=== PATIENT | female | born 1990 | race African-American/Black ===

== ENCOUNTER 2021-07-04 02:29 | Inpatient (IN) | payer SELFPAY ==
[~2021-07-04] VITALS: Ht 167.6 cm; Wt 96.6 kg
[2021-07-04 03:54] LABS: BASOPHILS % 0.6 % (0.0-2.0); EOSINOPHILS % 0.1 % (0.0-5.0); HEMATOCRIT. 42.4 % (36.0-48.0); HEMOGLOBIN. 13.6 g/dL (12.0-16.0); LYMPHOCYTES % 21.8 % (20.0-50.0); MEAN CORPUSCULAR HEMOGLOBIN 27.7 pg (28.0-32.0); MEAN CORPUSCULAR VOLUME 86.7 fL (81.0-99.0); MEAN PLATELET VOLUME 7.9 fl (7.4-10.4); MONOCYTES % 9.9 % (2.0-8.0); NEUTROPHILS % 67.6 % (40.0-76.0); PLATELET 428 x1000/uL (130-400); RED BLOOD CELL COUNT 4.89 mill/uL (4.2-5.4); RED CELL DISTRIBUTION WIDTH 14.2 % (11.6-14.6)
[2021-07-04 03:58] LABS: CHLORIDE 102 mEq/L (98-107)
[2021-07-04] MEDS ORDERED: LORAZEPAM 0.5MG TABLET PO ONE (04:00)
[2021-07-04] MEDS ORDERED: SODIUM CHLORIDE 0.9% 1,000 ML IV ONE (04:00)
[2021-07-04 04:03] LABS: ETHANOL BLOOD < 10 mg/dL
[2021-07-04 05:50] LABS: CLARITY URINE CLEAR (CLEAR); COLOR URINE YELLOW (YELLOW); KETONES URINE 4+ (NEGATIVE); LEUKOCYTE ESTERASE URINE NEGATIVE (NEGATIVE); NITRITE URINE NEGATIVE (NEGATIVE); OCCULT BLOOD URINE 1+ (NEGATIVE); PH URINE 5.5 (4.5-8.0); PROTEIN URINE TRACE (NEGATIVE); SPECIFIC GRAVITY URINE 1.028 (1.005-1.030)
[2021-07-04 06:38] LABS: *AMPHETAMINES SCREEN URINE NEGATIVE (NEGATIVE)
[2021-07-04 06:39] LABS: *BARBITURATES SCREEN URINE NEGATIVE (NEGATIVE); *BENZODIAZEPINES SCREEN URINE NEGATIVE (NEGATIVE); *COCAINE SCREEN URINE NEGATIVE (NEGATIVE); METHADONE URINE SCREEN NEGATIVE (NEGATIVE); OPIATES URINE SCREEN NEGATIVE (NEGATIVE); PHENCYCLIDINE URINE SCREEN NEGATIVE (NEGATIVE)
[2021-07-04 06:53] LABS: CANNABINOID URINE SCREEN PRESUMTIVE POSITIVE (NEGATIVE)
[2021-07-04] MEDS ORDERED: LACTATED RINGERS 1,000 ML IV SCH (08:45)
[2021-07-04] MEDS ORDERED: ACYCLOVIR INJ 750 MG in DEXT 5% WATER 125 ML IV SCH (10:45)
[2021-07-04] MEDS ORDERED: CEFTRIAXONE 2 G PREMIX 50 ML IV ONE (11:00)
[2021-07-04] MEDS ORDERED: AMPICILLIN 2000MG in SODIUM CHLORIDE 0.9% 100ML IV ONE (11:00)
[2021-07-04] MEDS ORDERED: AMPICILLIN 30MG/ML SYR IV ONE (11:00)
[2021-07-04] MEDS ORDERED: VANCOMYCIN 750 MG PREMIX 150 ML IV SCH (11:00)
[2021-07-04] MEDS ORDERED: VANCOMYCIN 1250MG in DEXTROSE 5% WATER 250ML IV ONE (11:15)
[2021-07-04 11:26] LABS: PARTIAL THROMBOPLASTIN TIME 25.8 sec (23.4-31.0); PROTHROMBIN TIME 11.2 sec (9.6-11.0)
[2021-07-04] MEDS ORDERED: LORAZEPAM 2MG/ML CPJ IM ONE (13:00)
[2021-07-04] MEDS ORDERED: HALOPERIDOL LACTATE 5MG/ML VIAL IM ONE (13:00)
[2021-07-04] MEDS ORDERED: LIDOCAINE HCL 1% 20ML VIAL (Pyxis) INJ ONE (14:19)
[2021-07-04] MEDS ORDERED: ACETAMINOPHEN 325MG TABLET PO PRN (15:45)
[2021-07-04] MEDS ORDERED: KETOROLAC 30MG/ML VIAL IV PRN (15:45)
[2021-07-04] MEDS ORDERED: CLONIDINE 0.1MG TABLET PO PRN (15:45)
[2021-07-04] MEDS ORDERED: GUAIFENESIN 200MG/10ML SUGAR FREE UDC PO PRN (15:45)
[2021-07-04] MEDS ORDERED: IPRATROPIUM/ALBUTEROL 0.5-3(2.5)MG/3ML NEB NEB PRN (15:45)
[2021-07-04] MEDS ORDERED: MAGNESIUM/ALUMINUM HYDROXIDE/SIMETHICONE 30ML UDC PO PRN (15:45)
[2021-07-04] MEDS ORDERED: ONDANSETRON HCL 4MG/2ML INJ IV PRN (15:45)
[2021-07-04 16:10] LABS: GLUCOSE CSF 61 mg/dL (41-75)
[2021-07-04 16:25] LABS: FOLIC ACID (FOLATE) SERUM 18.1 ng/mL (>5.38)
[2021-07-04] MEDS ORDERED: ENOXAPARIN 40MG/0.4ML SYR SUBCUT SCH (17:00)
[2021-07-04] MEDS: ACYCLOVIR INJ 550 MG in DEXT 5% WATER 100 ML IV SCH ×2 (17:30→19:00)
[2021-07-04] MEDS: SODIUM CHLORIDE 0.9% 1,000 ML IV SCH (18:25)
[2021-07-04 23:00] VITALS: BP 139/74
[2021-07-05] MEDS ORDERED: QUET200T PO (00:14)
[2021-07-05] MEDS: SODIUM CHLORIDE 0.9% 1,000 ML IV SCH ×3 (01:06→21:09)
[2021-07-05 01:24] LABS: CREATINE KINASE MB FRACTION 8.4 ng/mL (0.5-3.6)
[2021-07-05 01:33] LABS: CREATINE KINASE 3221 IU/L (26-192)
[2021-07-05] MEDS: ACYCLOVIR INJ 550 MG in DEXT 5% WATER 100 ML IV SCH ×3 (02:38→18:01)
[2021-07-05] MEDS: ACETAMINOPHEN 325MG TABLET PO PRN ×2 (02:39→21:09)
[2021-07-05 04:00] VITALS: BP 149/74
[2021-07-05 06:52] LABS: BASOPHILS % 0.5 % (0.0-2.0); EOSINOPHILS % 1.3 % (0.0-5.0); HEMATOCRIT. 39.3 % (36.0-48.0); HEMOGLOBIN. 12.9 g/dL (12.0-16.0); LYMPHOCYTES % 24.8 % (20.0-50.0); MEAN CORPUSCULAR HEMOGLOBIN 28.7 pg (28.0-32.0); MEAN CORPUSCULAR VOLUME 87.2 fL (81.0-99.0); MEAN PLATELET VOLUME 8.5 fl (7.4-10.4); MONOCYTES % 10.7 % (2.0-8.0); NEUTROPHILS % 62.7 % (40.0-76.0); PLATELET 380 x1000/uL (130-400); RED CELL DISTRIBUTION WIDTH 14.2 % (11.6-14.6)
[2021-07-05 07:46] LABS: CHLORIDE 106 mEq/L (98-107)
[2021-07-05 08:00] VITALS: BP 93/60
[2021-07-05 08:06] LABS: PHOSPHORUS 3.2 mg/dL (2.5-4.9)
[2021-07-05 08:13] LABS: CREATINE KINASE MB FRACTION 7.8 ng/mL (0.5-3.6)
[2021-07-05 08:18] LABS: CREATINE KINASE 3268 IU/L (26-192)
[2021-07-05 12:00] VITALS: BP 128/76
[2021-07-05 16:00] VITALS: BP 135/80
[2021-07-05] MEDS: ENOXAPARIN 30MG/0.3ML SYR SUBCUT SCH (17:27)
[2021-07-05 20:00] VITALS: BP 118/82
[2021-07-06 00:04] VITALS: BP 134/59
[2021-07-06] MEDS: ACYCLOVIR INJ 550 MG in DEXT 5% WATER 100 ML IV SCH (02:15)
[2021-07-06 04:00] VITALS: BP 120/72
[2021-07-06] MEDS: ENOXAPARIN 30MG/0.3ML SYR SUBCUT SCH (05:35)
[2021-07-06] MEDS: SODIUM CHLORIDE 0.9% 1,000 ML IV SCH (06:49)
[2021-07-06 08:00] VITALS: BP 107/61
[2021-07-06 10:44] VITALS: BP 107/61
[2021-07-06 12:00] VITALS: BP 140/83
== END 2021-07-06 13:40 | disposition home or self-care (01) | DRG 52 ==
LOC: ER 02:29 → 8WST 11:19 → ENRESERV 14:53
PROVIDERS: ADMIT Internal Medicine; ATTEND Internal Medicine
PROC: 009U3ZX Drainage of Spinal Canal, Percutaneous Approach, Diagnostic (ICD-10-PCS; principal; 2021-07-05)
PROC: B01B1ZZ Fluoroscopy of Spinal Cord using Low Osmolar Contrast (ICD-10-PCS; 2021-07-05)
DX: G92.8 Other toxic encephalopathy (principal); G03.9 Meningitis, unspecified; F29 Unspecified psychosis not due to a substance or known physiological condition; E86.0 Dehydration; E87.6 Hypokalemia; F31.9 Bipolar disorder, unspecified; F12.90 Cannabis use, unspecified, uncomplicated; F20.9 Schizophrenia, unspecified; Z20.822 Contact with and (suspected) exposure to COVID-19; D72.829 Elevated white blood cell count, unspecified; Z78.1 Physical restraint status; Z56.0 Unemployment, unspecified; Z59.00 Homelessness unspecified
CPT/HCPCS: 36415; 62328; 71045; 80048; 80053; 80076; 80305; 80307; 80320; 80329; 81003; 82140; 82550; 82553; 82607; 82746; 82945; 83540; 83550; 83605; 83735; 84100; 84145; 84157; 84443; 84484; 85025; 86592; 87070; 87116; 87210; 87426; 87899; 93005; 93970; 99285; C1893; C9803; J0133; J0290; J0696; J1630; J1650; J2060; J2405; J3370; J3490; J7030; J7040; J7050; J7060; U0003; U0005; G0480